=== PATIENT | female | born 1985 | race American Indian/Alaskan Native ===

== ENCOUNTER 2020-11-02 02:42 | Emergency (ER) | payer OTHER ==
[2020-11-02 03:29] VITALS: BP 127/81
--- NOTE | 2020-11-02 04:01 | Emergency Department Report ---
ED Lower Extremity HPI - General Chief Complaint: Extremity Injury, Lower Stated Complaint: RIGHT KNEE SWOLLEN Time Seen by Provider: 11/02/20 03:56 Source: patient Mode of arrival: Ambulatory Limitations: No Limitations - History of Present Illness Initial Comments: 35-year-old obese [place] female with planned flatfoot but mom felt a pop in her right knee which was followed by increased swelling and pain which been progressively worsening since the onset for about the last 5 days reports no prior history. Prior injuries to the knee. Pain is dull and throbbing worse with palpation and range of motion MD Complaint: knee injury -: Gradual Injury: Knee: Right Place: street/outdoors Severity: moderate Improves With: immobilization Worsens With: weight bearing, movement, palpation Context: running Associated Symptoms: snap/pop sensation, swelling, able to partially bear weight. denies: tingling - Related Data Previous Rx's Medication Instructions Recorded Last Taken Type Ketorolac [Toradol] 10 mg PO Q6H PRN #14 tablet 11/02/20 Unknown Rx traMADoL [Ultram] 50 mg PO Q6HR PRN #14 tablet 11/02/20 Unknown Rx Allergies Allergy/AdvReac Type Severity Reaction Status Date / Time chlorine Allergy Unknown Uncoded 11/02/20 03:09 ED Review of Systems ROS: Stated complaint: RIGHT KNEE SWOLLEN Other details as noted in HPI Comment: All other systems reviewed and negative ED Past Medical Hx - Past Medical History Previous Medical History?: No - Surgical History Past Surgical History?: No - Social History Smoking Status: Never Smoker - Medications Home Medications: Home Medications Medication Instructions Recorded Confirmed Last Taken Type Ketorolac [Toradol] 10 mg PO Q6H PRN #14 tablet 11/02/20 Unknown Rx traMADoL [Ultram] 50 mg PO Q6HR PRN #14 tablet 11/02/20 Unknown Rx ED Physical Exam - General Limitations: No Limitations General appearance: alert, in no apparent distress - Head Head exam: Present: atraumatic, normocephalic - Eye Eye exam: Present: normal appearance, PERRL, EOMI Pupils: Present: normal accommodation - ENT ENT exam: Present: normal exam, normal orophraynx, mucous membranes moist - Neck Neck exam: Present: normal inspection, full ROM - Respiratory Respiratory exam: Present: normal lung sounds bilaterally. Absent: respiratory distress - Cardiovascular Cardiovascular Exam: Present: regular rate, normal rhythm. Absent: systolic murmur, diastolic murmur, rubs, gallop - GI/Abdominal GI/Abdominal exam: Present: soft, normal bowel sounds - Extremities Exam Extremities exam: Present: normal inspection, tenderness - Expanded Lower Extremity Exam Right Knee exam: Present: tenderness (Above then kneecap in the area of the quadriceps tendon pain with Annabella's), swelling, effusion. Absent: abrasion, laceration, ecchymosis, deformity, erythema, pain/laxity with valgus, pain/laxity with varus Neuro vascular tendon exam: Present: no vascular compromise. Absent: pulse deficit, abnormal cap refill, motor deficit - Back Exam Back exam: Present: normal inspection - Neurological Exam Neurological exam: Present: alert, oriented X3 - Psychiatric Psychiatric exam: Present: normal affect, normal mood - Skin Skin exam: Present: warm, dry, intact, normal color. Absent: rash ED Course Vital Signs 11/02/20 03:02 Temperature 98.3 F Pulse Rate 80 Respiratory 18 Rate Blood Pressure 127/81 O2 Sat by Pulse 99 Oximetry - Orthopedic Splinting/Casting Injury #1 Side: right Lower Extremity Injury Location: knee Lower Extremity Immobilizer: knee immobilizer Other Orthopedic Equipment: crutches Critical care attestation.: If time is entered above; I have spent that time in minutes in the direct care of this critically ill patient, excluding procedure time. ED Disposition Clinical Impression: Knee internal derangement Disposition: DC-01 TO HOME OR SELFCARE Is pt being admited?: No Does the pt Need Aspirin: No Condition: Stable Instructions: Patellar Tendon Tear, Acute Knee Pain, Adult, How to Use a Knee Immobilizer, Meniscus Tear, Knee Effusion, [id number], Combined Knee Ligament Sprain Prescriptions: Ketorolac [Toradol] 10 mg PO Q6H PRN #14 tablet PRN Reason: Pain traMADoL [Ultram] 50 mg PO Q6HR PRN #14 tablet PRN Reason: Pain Referrals: PRIMARY CAREMD [Primary Care Provider] - 3-[address] [facility] [Provider Group] - 3-5 Days TANISHA CEBALLOS MD [Staff Physician] - 3-5 Days
--- NOTE | 2020-11-02 04:30 | XRay Report ---
RIGHT KNEE 2 VIEWS [id number] INDICATION: pain and swelling, pain with weightbearing COMPARISON: None available. FINDINGS: Views were obtained in a brace in AP and crosstable lateral positions. No obvious fractures or dislocations are seen. Signer Name: Marquez Watt MD Signed: 11/02/2020 4:26 AM Workstation Name: [id number]
== END 2020-11-02 04:30 | disposition home or self-care (01) ==
LOC: ED 02:42
DX: M23.8X1 Other internal derangements of right knee (principal); Z79.899 Other long term (current) drug therapy; Z88.8 Allergy status to other drugs, medicaments and biological substances
CPT/HCPCS: 99283

== ENCOUNTER 2021-09-18 19:26 | Emergency (ER) | payer OTHER ==
[2021-09-18 21:40] VITALS: BP 122/72
[2021-09-18] MEDS ORDERED: ACETAMINOPHEN 325 MG TAB PO ONE (23:54)
[2021-09-18] MEDS ORDERED: IBUPROFEN 600 MG TAB PO ONE (23:54)
--- NOTE | 2021-09-18 23:54 | Emergency Department Report ---
ED General Adult HPI - General Chief complaint: Back Pain/Injury Stated complaint: BACK PAIN PUI?: No Time Seen by Provider: 09/18/21 23:34 Source: patient, RN notes reviewed, old records reviewed Mode of arrival: Ambulatory Limitations: No Limitations - History of Present Illness Initial comments: The patient is a 36-year-old female. She states that she is not . She presents to the ER today with a complaint of nontraumatic paralumbar back pain, present for a few days to a few weeks. Pain throbbing, does not radiate anywhere. Denies fever, IV drug use, abdominal pain, bladder/bowel retention incontinence and saddle anesthesia. Denies additional injuries and complaints. 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 Has taken [id number] Naprosyn for pain. Minimal improvement in symptoms. Denies Covid symptoms. -: Gradual, days(s), week(s) Location: back Radiation: non-radiation Quality: aching Consistency: intermittent Improves with: rest Worsens with: movement - Related Data Previous Rx's Medication Instructions Recorded Last Taken Type Acetaminophen [Non-Aspirin Extra 650 mg PO Q6HR PRN #30 tablet 09/19/21 Unknown Rx Strength] Ibuprofen [Motrin] 600 mg PO Q8H PRN #30 tablet 09/19/21 Unknown Rx Allergies Allergy/AdvReac Type Severity Reaction Status Date / Time chlorine Allergy Unknown Uncoded 11/02/20 03:09 ED Review of Systems ROS: Stated complaint: BACK PAIN Other details as noted in HPI Constitutional: denies: fever Eyes: denies: eye discharge ENT: denies: epistaxis Respiratory: denies: cough Cardiovascular: denies: chest pain Gastrointestinal: denies: abdominal pain Genitourinary: denies: dysuria Musculoskeletal: back pain Neurological: denies: weakness, numbness ED Past Medical Hx - Past Medical History Previous Medical History?: No - Surgical History Past Surgical History?: No - Social History Smoking Status: Never Smoker - Medications Home Medications: Home Medications Medication Instructions Recorded Confirmed Last Taken Type Acetaminophen [Non-Aspirin Extra 650 mg PO Q6HR PRN #30 tablet 09/19/21 Unknown Rx Strength] Ibuprofen [Motrin] 600 mg PO Q8H PRN #30 tablet 09/19/21 Unknown Rx ED Physical Exam - General Limitations: No Limitations General appearance: alert, in no apparent distress, obese - Head Head exam: Present: atraumatic, normocephalic - Eye Eye exam: Present: normal appearance, EOMI. Absent: nystagmus - ENT ENT exam: Present: normal exam, normal orophraynx, mucous membranes moist, normal external ear exam - Neck Neck exam: Present: normal inspection, full ROM. Absent: tenderness, meningismus - Respiratory Respiratory exam: Present: normal lung sounds bilaterally. Absent: respiratory distress, wheezes, rales, rhonchi, stridor, decreased breath sounds - Cardiovascular Cardiovascular Exam: Present: regular rate, normal rhythm, normal heart sounds. Absent: bradycardia, tachycardia, irregular rhythm, systolic murmur, diastolic murmur, rubs, gallop - GI/Abdominal GI/Abdominal exam: Present: soft. Absent: distended, tenderness, guarding, rebound, rigid, pulsatile mass - Extremities Exam Extremities exam: Present: normal inspection, full ROM, other (2+ pulses noted in the bilateral upper and lower extremities. There is no palpable cord. negative Homans sign. Muscular compartments are soft. The pelvis is stable.). Absent: pedal edema, calf tenderness - Back Exam Back exam: Present: normal inspection, paraspinal tenderness. Absent: tenderness, CVA tenderness (R), CVA tenderness (L), muscle spasm, vertebral t enderness - Neurological Exam Neurological exam: Present: alert, oriented X3, normal gait, reflexes normal, other (No facial droop. Tongue midline. Extraocular movements intact bilaterally. Facial sensation intact to light touch in V1, V2, V3 distribution bilaterally. 5 and a 5 strength in 4 extremities. Sensation intact to light touch in 4 extremities.). Absent: motor sensory deficit - Psychiatric Psychiatric exam: Present: normal affect, normal mood - Skin Skin exam: Present: warm, dry, intact, normal color. Absent: rash ED Course Vital Signs 09/18/21 21:39 Temperature 98.2 F Pulse Rate 96 H Respiratory 16 Rate Blood Pressure 122/72 [Right] O2 Sat by Pulse 99 Oximetry ED Medical Decision Making - Lab Data Vital Signs 09/18/21 21:39 Temperature 98.2 F Pulse Rate 96 H Respiratory 16 Rate Blood Pressure 122/72 [Right] O2 Sat by Pulse 99 Oximetry - Medical Decision Making Differential diagnosis, including but not limited to: Muscular lower back pain, encounter for medical screening examination Assessment and plan: 36-year-old female who reports that she is not , presenting with paraspinal paralumbar back pain, does not use IV drugs, denies fever, denies bladder/bowel retention, incontinence and saddle anesthesia, has an appropriate neurologic examination, with no pulsatile abdominal mass, and walks with a steady gait. This is likely mechanical lower back pain. Rest, ice, compression, elevation, alternate Tylenol and ibuprofen, ice packs and heat packs, outpatient follow-up. Return precautions reviewed Critical care attestation.: If time is entered above; I have spent that time in minutes in the direct care of this critically ill patient, excluding procedure time. ED Disposition Clinical Impression: Lower back pain Qualifiers: Chronicity: acute Back pain laterality: bilateral Sciatica presence: without sciatica Qualified Code(s): M54.50 - Low back pain, unspecified Disposition: 01 HOME / SELF CARE / HOMELESS Is pt being admited?: No Does the pt Need Aspirin: No Condition: Good Instructions: Back Exercises, [id number] Additional Instructions: Please take the pain medications as needed and directed. Patient may alternate ice packs and heat packs as needed for physical pain, along with the prescribed pain medications. Please follow-up with an outpatient primary care doctor within the next 2 to 4 weeks. Please return to the emergency room right away with new pain, worsened pain, migration of pain, projectile vomiting, change in mental status, confusion, inability to tolerate liquid feeds, weakness, numbness, bladder/bowel retention incontinence or saddle anesthesia. Patient likely has mechanical lower back pain, which may last for weeks and months. However, this is typically not a dangerous or emergent medical condition, and will likely resolve/improve with the aforementioned interventions. Please follow-up with a primary care doctor within the next 2 to 4 weeks Prescriptions: Ibuprofen [Motrin] 600 mg PO Q8H PRN #30 tablet PRN Reason: Pain Acetaminophen [Non-Aspirin Extra Strength] 650 mg PO Q6HR PRN #30 tablet PRN Reason: Pain , Severe (7-10) Referrals: [facility] [Provider Group] - 3-5 Days Forms: Work/School Release Form
== END 2021-09-19 00:45 | disposition home or self-care (01) ==
LOC: ED 19:26
DX: M54.50 Low back pain, unspecified (principal); Z88.8 Allergy status to other drugs, medicaments and biological substances; Z79.899 Other long term (current) drug therapy
CPT/HCPCS: 99282